=== PATIENT | female | born 1935 | race Caucasian/White ===

== ENCOUNTER 2016-05-25 02:21 | Inpatient (IN) | payer MEDICARE, OTHER ==
[~2016-05-25] VITALS: Ht 160 cm; Wt 73.4 kg
[~2016-05-25 02:21] MED LIST: ASPI-496 PO; ASPI-650 PO; MELA1TAB19 SL; METO25TA91 PO; MULT-6 PO; PANT40TA3 PO; RANI75TA12 PO; SIMV40TA PO; SIMV40TA3 PO
[2016-05-25] MEDS ORDERED: SODIUM CHLORIDE FLUSH 10ML SYR IVF ONE (03:00)
[2016-05-25] MEDS ORDERED: SODIUM CHLORIDE 0.9% 1,000ML IVBOLUS ONE (03:00)
[2016-05-25] MEDS ORDERED: ONDANSETRON 2MG/ML, 2ML IVPush ONE (03:00)
[2016-05-25] MEDS ORDERED: ONDANSETRON 2MG/ML, 2ML ONE (03:04)
[2016-05-25 03:30] LABS: HEMOGLOBIN 14.3 g/dL (11.7-16.4)
[2016-05-25 03:39] LABS: BLOOD UREA NITROGEN 16 mg/dL (7-18)
[2016-05-25 03:43] LABS: ASPARTATE AMINO TRANSFERASE 22 U/L (15-37)
[2016-05-25 05:41] VITALS: BP 146/82
[2016-05-25] MEDS ORDERED: POLYETHYLENE GLYCOL 17 GM PACKET PO PRN (06:30)
[2016-05-25] MEDS ORDERED: DOCUSATE 100 MG CAPSULE PO PRN (06:30)
[2016-05-25] MEDS ORDERED: LABETALOL 5MG/ML, 20ML IV PRN (06:30)
[2016-05-25] MEDS ORDERED: BISACODYL 10 MG SUPP PR PRN (06:30)
[2016-05-25 08:20] VITALS: BP 120/64
[2016-05-25 09:48] VITALS: BP 143/82
[2016-05-25] MEDS: ENOXAPARIN 40 MG/0.4 ML SQ SCH (09:50)
[2016-05-25] MEDS: ACETAMINOPHEN 325 MG TABLET PO PRN ×2 (09:50→14:22)
[2016-05-25] MEDS: MULTIVITAMIN 1 TABLET PO SCH (09:51)
[2016-05-25] MEDS: ASPIRIN 81 MG TABLET EC PO SCH (09:51)
[2016-05-25] MEDS: METOPROLOL SUCCINATE 25 MG TAB.ER.24H PO SCH (09:52)
[2016-05-25] MEDS: SODIUM CHLORIDE 0.9% 1,000 ML IV SCH ×2 (13:00→19:55)
[2016-05-25 13:24] VITALS: BP 110/57
[2016-05-25 15:46] LABS: BLOOD UREA NITROGEN 16 mg/dL (7-18)
[2016-05-25 16:26] VITALS: BP 138/85
[2016-05-25] MEDS: ONDANSETRON ODT 4 MG PO PRN (16:30)
[2016-05-25 19:48] VITALS: BP 144/79
[2016-05-25] MEDS: MELATONIN 3 MG TABLET PO SCH (21:24)
[2016-05-26 02:11] VITALS: BP 119/65
[2016-05-26] MEDS: SODIUM CHLORIDE 0.9% 1,000 ML IV SCH ×2 (02:18→08:11)
[2016-05-26 05:16] LABS: HEMOGLOBIN 13.5 g/dL (11.7-16.4)
[2016-05-26] MEDS: ACETAMINOPHEN 325 MG TABLET PO PRN (05:42)
[2016-05-26 05:46] LABS: BLOOD UREA NITROGEN 12 mg/dL (7-18)
[2016-05-26 08:00] VITALS: BP 139/79
[2016-05-26] MEDS: METOPROLOL SUCCINATE 25 MG TAB.ER.24H PO SCH (08:06)
[2016-05-26] MEDS: ASPIRIN 81 MG TABLET EC PO SCH (08:06)
[2016-05-26] MEDS: MULTIVITAMIN 1 TABLET PO SCH (08:06)
[2016-05-26] MEDS: ENOXAPARIN 40 MG/0.4 ML SQ SCH (08:06)
[2016-05-26 13:57] VITALS: BP 120/69
[2016-05-26 20:05] VITALS: BP 146/76
[2016-05-26] MEDS: MELATONIN 3 MG TABLET PO SCH (21:57)
[2016-05-26] MEDS: TRAZODONE 50MG TABLET PO PRN (21:57)
[2016-05-27 02:14] VITALS: BP 138/85
[2016-05-27 08:30] VITALS: BP 131/85
[2016-05-27] MEDS: MULTIVITAMIN 1 TABLET PO SCH (08:37)
[2016-05-27] MEDS: ASPIRIN 81 MG TABLET EC PO SCH (08:37)
[2016-05-27] MEDS: METOPROLOL SUCCINATE 25 MG TAB.ER.24H PO SCH (08:38)
[2016-05-27] MEDS: ENOXAPARIN 40 MG/0.4 ML SQ SCH (08:38)
[2016-05-27 14:57] VITALS: BP 145/84
[2016-05-27 20:02] VITALS: BP 134/80
[2016-05-27] MEDS: TRAZODONE 50MG TABLET PO PRN (21:23)
[2016-05-27] MEDS: MELATONIN 3 MG TABLET PO SCH (21:23)
[2016-05-28 02:36] VITALS: BP 105/61
[2016-05-28 07:25] VITALS: BP 128/74
[2016-05-28 09:36] VITALS: BP 135/68
[2016-05-28] MEDS: METOPROLOL SUCCINATE 25 MG TAB.ER.24H PO SCH (09:38)
[2016-05-28] MEDS: ENOXAPARIN 40 MG/0.4 ML SQ SCH (09:38)
[2016-05-28] MEDS: ONDANSETRON ODT 4 MG PO PRN (09:38)
[2016-05-28] MEDS: ACETAMINOPHEN 325 MG TABLET PO PRN (09:38)
[2016-05-28] MEDS: MULTIVITAMIN 1 TABLET PO SCH (09:38)
[2016-05-28] MEDS: ASPIRIN 81 MG TABLET EC PO SCH (09:38)
[2016-05-28] MEDS ORDERED: ENOX40SY4 SQ (11:39)
[2016-05-28 12:57] VITALS: BP 122/80
== END 2016-05-28 13:27 | DRG 89 ==
LOC: ED 03:50 → EDIP 03:51 → 4NOR 05:31
PROVIDERS: ADMIT Internal Medicine; ATTEND Internal Medicine
DX: S06.0X0A Concussion without loss of consciousness, initial encounter (principal); E87.1 Hypo-osmolality and hyponatremia; I48.0 Paroxysmal atrial fibrillation; S09.8XXA Other specified injuries of head, initial encounter; I10 Essential (primary) hypertension; F03.90 Unspecified dementia, unspecified severity, without behavioral disturbance, psychotic disturbance, mood disturbance, and anxiety; E78.5 Hyperlipidemia, unspecified; K21.9 Gastro-esophageal reflux disease without esophagitis; K57.90 Diverticulosis of intestine, part unspecified, without perforation or abscess without bleeding; W01.0XXA Fall on same level from slipping, tripping and stumbling without subsequent striking against object, initial encounter; E86.0 Dehydration; Z66 Do not resuscitate; Z87.891 Personal history of nicotine dependence; Z85.828 Personal history of other malignant neoplasm of skin; Z90.49 Acquired absence of other specified parts of digestive tract; Z90.89 Acquired absence of other organs
CPT/HCPCS: 36415; 70450; 70486; 71010; 72110; 72125; 72220; 80048; 80053; 81003; 82533; 83735; 83935; 84443; 85025; 85610; 85730; 93005; 96361; 96374; J1650; J2405; Q0162; J7030

== ENCOUNTER → 2016-08-06 | Outpatient (CLI) | payer MEDICARE, OTHER ==
[~2016-08-06] MED LIST changes: +ENOX40SY4 SQ
== END | disposition home or self-care (01) ==
LOC: CFH 14:10
PROVIDERS: ATTEND Physician Assistant
DX: Z12.31 Encounter for screening mammogram for malignant neoplasm of breast (principal)
CPT/HCPCS: G0202

== ENCOUNTER 2018-04-29 13:15 | Emergency (ER) | payer MEDICARE, OTHER ==
[~2018-04-29] VITALS: Ht 160 cm; Wt 78.5 kg
[~2018-04-29 13:15] MED LIST changes: +BUTA-177 PO; +CHOL10003 PO; +LISI-170 PO; +MEMA1CAP3 PO; +METO-93 PO; +OMEP-110 PO; +RANI150T4 PO; +SENN1TAB8 PO; +TRAM50TA2 PO; +[UNRECOGNIZED DRUG - CODE] PO
[2018-04-29 14:13] LABS: BASOPHILS # (AUTO) 0.04 x10^3/uL (0-0.1); BASOPHILS % (AUTO) 1 % (0-1); EOSINOPHILS # (AUTO) 0.22 x10^3/uL (0-0.4); EOSINOPHILS % (AUTO) 2 % (1-7); LYMPHOCYTES # (AUTO) 2.51 x10^3/uL (1-3.4); LYMPHOCYTES % (AUTO) 28 % (22-44); MD NO; MEAN CORPUSCULAR HEMOGLOBIN 30.8 pg (27.0-34.8); MEAN CORPUSCULAR HGB CONC 33.7 g/dL (32.4-35.8); MEAN CORPUSCULAR VOLUME 91.3 fL (80-100); MEAN PLATELET VOLUME 6.6 fL (7.4-10.4); MONOCYTES # (AUTO) 0.77 x10^3/uL (0.2-0.8); MONOCYTES % (AUTO) 9 % (2-9); NEUTROPHILS # (AUTO) 5.44 x10^3/uL (1.8-6.8); NEUTROPHILS % (AUTO) 61 % (42-75); PLATELET COUNT 368 x10^3/uL (130-400); RED BLOOD COUNT 4.89 x10^6/uL (3.82-5.3); RED CELL DISTRIBUTION WIDTH 13.1 % (9.6-15.2)
[2018-04-29 14:25] LABS: ALANINE AMINOTRANSFERASE 28 U/L (12-78); ALBUMIN 4.1 g/dL (3.4-5.0); ANION GAP 7 mmol/L (5-15); CALCIUM 9.2 mg/dL (8.5-10.1); CHLORIDE 93 mmol/L (98-107)
[2018-04-29 14:29] LABS: ALKALINE PHOSPHATASE 98 U/L (45-117); BILIRUBIN,TOTAL 0.5 mg/dL (0.2-1.0); TROPONIN I < 0.015 ng/mL (0.000-0.045)
--- NOTE | 2018-04-29 15:05 | NUR ---
[employer]ICIP[employer] JUDGE: PT TO ROOM FROM [facility]
--- NOTE | 2018-04-29 15:11 | NUR ---
PT WALKED BACK FROM LOBBY TO ROOM. STEADY UPON AMBULATION. ASSUMED CARE OF PT. PT AO X 4. SKIN PWD. RESP EVEN AND EQAUL. PT C/O RIGHT LATERAL LEG PAIN X A FEW WEEKS. TENDER TO PALPATION AND INCREASED PAIN WITH AMBULATION. PT SEEN AT AND SENT TO ER D/T HTN. SON AT BEDSIDE. PT AND SON AWARE WE ARE WAITING FOR ERMD EVAL. PT ON CONT BP AND O2 MONITORS .CALL LIGHT WITHIN REACH. WILL CONT TO MONITOR PT.
[2018-04-29] MEDS ORDERED: SODIUM CHLORIDE FLUSH 10ML SYR IVF ONE (16:00)
[2018-04-29] MEDS ORDERED: SODIUM CHLORIDE 0.9% 1,000ML IVBOLUS ONE (16:00)
--- NOTE | 2018-04-29 16:34 | NUR ---
PT TO IMAGING VIA [facility].
--- NOTE | 2018-04-29 17:22 | NUR ---
BREAK RN: VITAL SIGNS UPDATED. PT WATCHING TELEVISION AND IN NO DISTRESS. FAMILY AT BEDSIDE
--- NOTE | 2018-04-29 18:23 | NUR ---
PT CURRENTLY RESTING ON GURNEY. NAD NOTED. SKIN PWD. RESP EVEN AND EQAUL. PT AWARE WE ARE WAITING FOR RECHECK BY [facility]. PT WAS PROVIDED WITH MEAL TRAY AND ATE MOST OF IT. [id number] AT BEDSIDE. PT AND [id number] DENY NEEDS AT THIS TIME. CALL LIGHTW TIHINR EACH. WILL CONT TO MONITOR PT.
[2018-04-29] MEDS ORDERED: ACET-1600 PO (18:48)
[2018-04-29] MEDS ORDERED: LISI-167 PO (18:48)
[2018-04-29] MEDS ORDERED: MELA5TAB10 SL (18:48)
[2018-04-29] MEDS ORDERED: PSYL822P15 PO (18:48)
[2018-04-29] MEDS ORDERED: RABE20TA26 PO (18:48)
--- NOTE | 2018-04-29 19:15 | NUR ---
PT UP TO RESTROOM. STEADY UPON AMBULATION. PT REPORTS PAIN WITH WALKING, BUT ABLE TO WALK DOWN HALLWAY TO RESTROOM AND BACK TO ROOM W/O ASSISTANCE. PT MEDICATED ORDERED FOR PAIN. PT AND [id number] AWARE WE ARE WAITING FOR DC PAPERWORK AND A CHANGE OF CLOTHES TO BE BROUGHT BY SON. PT DENIES ANY OTHER NEEDS AT THIS TIME. CALL LIGHT WITHIN REACH. WILL CONT TO MONITOR PT.
[2018-04-29 19:46] VITALS: BP 173/80
== END 2018-04-29 19:48 | disposition home or self-care (01) ==
LOC: ED 16:43
DX: I10 Essential (primary) hypertension (principal); S39.012A Strain of muscle, fascia and tendon of lower back, initial encounter; X58.XXXA Exposure to other specified factors, initial encounter; Y93.89 Activity, other specified; Y92.89 Other specified places as the place of occurrence of the external cause; Y99.8 Other external cause status
CPT/HCPCS: 36415; 71045; 72170; 80053; 83690; 84484; 85025; 93005; 99284; J7030